=== PATIENT | female | born 1980 | race American Indian/Alaskan Native ===

== ENCOUNTER 2020-11-11 12:29 | Outpatient (CLI) | payer OTHER ==
--- NOTE | 2020-11-11 14:46 | XRay Report ---
BILATERAL HIPS WITH PELVIS 3 VIEWS INDICATION: BILATERAL HIP PAIN. COMPARISON: None. IMPRESSION: No acute osseous or soft tissue abnormality. No significant DJD. Partially calcified uterine fibroids are noted in the pelvis. Signer Name: Adiel Bazzi Jr, MD Signed: 11/11/2020 2:42 PM Workstation Name: [id number]
== END 2020-11-11 12:30 | disposition home or self-care (01) ==
LOC: XRAY 12:29
PROVIDERS: ATTEND Internal Medicine
DX: M25.551 Pain in right hip (principal); M25.552 Pain in left hip; D25.9 Leiomyoma of uterus, unspecified
CPT/HCPCS: 73521